=== PATIENT | female | born 1955 | race Caucasian/White ===

== ENCOUNTER 2019-07-28 11:24 | Observation (INO) | payer OTHER ==
[~2019-07-28] VITALS: Ht 160 cm; Wt 164.0 kg
--- NOTE | 2019-07-28 11:53 | NUR ---
LATE ENTRY FOR 1145 IN TO ASSESS PT, RADIOLOGY BEDSIDE.
--- NOTE | 2019-07-28 11:58 | NUR ---
64 Y/O FEMALE PRESENTS TO ED WITH C/O CP AND SOB. "IT'S BEEN REALLY BAD FOR THE LAST COUPLE OF WEEKS. WHEN I'M STATIONARY I CAN BREATHE FINE. WHEN I WALK I GET REALLY SOB AND IT'S BEEN FOR ABOUT A YEAR. I HAVE SOME CHEST PAIN FOR ABOUT TWO DAYS. I'VE HAD DIARRHEA FOR THE LAST WEEK." NADN. 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
[2019-07-28] MEDS ORDERED: SODIUM CHLORIDE FLUSH 10ML SYR IVF ONE (12:00)
[2019-07-28 12:01] LABS: BASOPHILS # (AUTO) 0.04 x10^3/uL (0-0.1); BASOPHILS % (AUTO) 1 % (0-1); EOSINOPHILS # (AUTO) 0.23 x10^3/uL (0-0.4); EOSINOPHILS % (AUTO) 4 % (1-7); LYMPHOCYTES # (AUTO) 1.35 x10^3/uL (1-3.4); LYMPHOCYTES % (AUTO) 24 % (22-44); MD NO; MEAN CORPUSCULAR HEMOGLOBIN 30.4 pg (27.0-34.8); MEAN CORPUSCULAR HGB CONC 33.4 g/dL (32.4-35.8); MEAN CORPUSCULAR VOLUME 91.1 fL (80-100); MEAN PLATELET VOLUME 8.4 fL (7.4-10.4); MONOCYTES % (AUTO) 7 % (2-9); NEUTROPHILS # (AUTO) 3.58 x10^3/uL (1.8-6.8); NEUTROPHILS % (AUTO) 64 % (42-75); PLATELET COUNT 315 x10^3/uL (130-400); RED BLOOD COUNT 4.92 x10^6/uL (3.82-5.3); RED CELL DISTRIBUTION WIDTH 13.2 % (9.6-15.2)
[2019-07-28 12:08] LABS: ALANINE AMINOTRANSFERASE 51 U/L (12-78); ALBUMIN 3.9 g/dL (3.4-5.0); ANION GAP 8 mmol/L (5-15); CALCIUM 8.5 mg/dL (8.5-10.1); CHLORIDE 107 mmol/L (98-107); CREATININE 0.91 mg/dL (0.55-1.02)
[2019-07-28 12:12] LABS: ALKALINE PHOSPHATASE 89 U/L (45-117); BILIRUBIN,TOTAL 0.7 mg/dL (0.2-1.0); TOTAL PROTEIN 7.4 g/dL (6.4-8.2); TROPONIN I < 0.015 ng/mL (0.000-0.045)
--- NOTE | 2019-07-28 12:51 | NUR ---
PT AMBULATORY WITH STEADY GAIT TO BATHROOM FOR UA. NADN.
--- NOTE | 2019-07-28 13:04 | NUR ---
UA SENT TO LAB.
[2019-07-28 13:14] LABS: MICROSCOPIC AUTO
--- NOTE | 2019-07-28 13:16 | NUR ---
PT CHOSES TO SIT ON GURNEY WITH FEET OFF OF GURNEY. PT EDUCATED REGARDING ALL RISKS. PT VERBALIZES UNDERSTANDING. FAMILY BEDSIDE. PT STILL PREFERS TO SIT ON THE EDGE OF BED. CALL LIGHT WITHIN REACH.
[2019-07-28 13:18] LABS: CULTURE INDICATED? YES
--- NOTE | 2019-07-28 14:13 | NUR ---
PT RESTING ON CYNDI. SAWYER. NO OTHER NEEDS REQUESTED AT THIS TIME. EDMD BEDSIDE.
[2019-07-28] MEDS ORDERED: CEFTRIAXONE PMX 1GM/50ML 50 ML IV ONE (14:30)
--- NOTE | 2019-07-28 14:38 | NUR ---
PT RESTING ON GURNEY. FAMILY BEDSIDE. PT VERBALIZES UNDERSTANDING REGARDING POC. PT STATES "I'M GLAD HE WANTS TO ADMIT ME." NADN, NO OTHER NEEDS REQUESTED AT THIS TIME.
--- NOTE | 2019-07-28 14:57 | NUR ---
PIV ESTABLISHED. PT TOLERATED WITH NO COMPLICATIONS. SON BEDSIDE. NADN. NO NEEDS REQUESTED AT THIS TIME.
[2019-07-28] MEDS ORDERED: AMLO10TA8 PO (15:03)
[2019-07-28] MEDS ORDERED: CHOL100015 PO (15:03)
[2019-07-28] MEDS ORDERED: FLUO20TA25 PO (15:03)
[2019-07-28] MEDS ORDERED: OMEP40CA42 PO (15:03)
[2019-07-28] MEDS ORDERED: ATOR10TA9 PO (15:03)
[2019-07-28] MEDS ORDERED: METF500T17 PO (15:03)
[2019-07-28] MEDS ORDERED: LISI-170 PO (15:03)
[2019-07-28] MEDS ORDERED: CINN500C2 PO (15:05)
[2019-07-28] MEDS ORDERED: MULT-709 PO (15:05)
[2019-07-28] MEDS ORDERED: ASPI-515 PO (15:05)
[2019-07-28] MEDS ORDERED: CEFTRIAXONE PMX 1GM/50ML 50 ML ONE ×2 (15:29→16:36)
--- NOTE | 2019-07-28 16:28 | NUR ---
PT RESTING ON GURTAMIE. SAWYER. HOSPITALIST JUST LEFT PT BEDSIDE. SON BEDSIDE. NO OTHER NEEDS REQUESTED AT THIS TIME.
[2019-07-28] MEDS: CEFTRIAXONE PMX 2GM/50ML 50 ML IV SCH (16:30)
[2019-07-28] MEDS: HEPARIN 5,000 UNITS/ML, 1ML SQ SCH (16:30)
[2019-07-28] MEDS ORDERED: ACETAMINOPHEN 325 MG TABLET PO PRN (16:30)
[2019-07-28] MEDS ORDERED: ONDANSETRON ODT 4 MG PO PRN (16:30)
[2019-07-28] MEDS ORDERED: ONDANSETRON 2MG/ML, 2ML IVPush PRN (16:30)
[2019-07-28 16:58] LABS: TROPONIN I < 0.015 ng/mL (0.000-0.045)
--- NOTE | 2019-07-28 16:59 | NUR ---
PT AMBULATORY WITH STEADY GAIT TO BATHROOM.
--- NOTE | 2019-07-28 17:43 | NUR ---
PT RESTING ON CYNDI. SAWYER. FAMILY BEDSIDE. NO NEEDS REQUESTED AT THIS TIME.
--- NOTE | 2019-07-28 18:28 | NUR ---
PT AMBULATORY WITH STEADY GAIT TO BATHROOM. NADN. PT BACK TO ROOM. SON BEDSIDE. NO REQUESTES AT THIS TIME.
--- NOTE | 2019-07-28 19:00 | NUR ---
BEDSIDE REPORT TO MARIVEL MARINO.
[2019-07-28] MEDS ORDERED: CARVEDILOL 3.125 MG TABLET ONE (19:05)
[2019-07-28] MEDS: CARVEDILOL 6.25 MG TABLET PO SCH (19:10)
--- NOTE | 2019-07-28 19:12 | NUR ---
PT REFUSED COREG BECAUSE SHE SAID SHE HAD A BAD REACTION TO METOPROLOL, BUT CANNOT REMEMBER WHAT THE BAD REACTION WAS. PT STATES SHE USUALLY TAKED LISINAPRIL FOR BP AT HOME.
--- NOTE | 2019-07-28 21:07 | NUR ---
PT HAS BEEN UNABLE TO PROVIDE STOOL SAMPLE FOR ANALYSIS
--- NOTE | 2019-07-28 21:30 | NUR ---
REPORT TO MARIVEL TOMAS
[2019-07-28 22:04] VITALS: BP 162/78
[2019-07-28 23:05] LABS: TROPONIN I < 0.015 ng/mL (0.000-0.045)
[2019-07-28] MEDS ORDERED: CHOL10002 PO (23:13)
[2019-07-28] MEDS: INSULIN LISPRO 100 UNITS/ML, PEN SQ-INSULIN SCH (23:16)
[2019-07-28] MEDS: LACTOBACILLUS CHEW TABLET PO SCH (23:16)
[2019-07-29] MEDS ORDERED: FLU VACC QS2019-20 36MOS UP/PF 0.5 ML IM-VACC ONE (00:30)
[2019-07-29 03:19] VITALS: BP 160/91
[2019-07-29 03:55] VITALS: BP 101/70
[2019-07-29 05:53] LABS: BASOPHILS # (AUTO) 0.05 x10^3/uL (0-0.1); BASOPHILS % (AUTO) 1 % (0-1); EOSINOPHILS # (AUTO) 0.23 x10^3/uL (0-0.4); EOSINOPHILS % (AUTO) 5 % (1-7); LYMPHOCYTES # (AUTO) 1.11 x10^3/uL (1-3.4); LYMPHOCYTES % (AUTO) 22 % (22-44); MD NO; MEAN CORPUSCULAR HEMOGLOBIN 30.2 pg (27.0-34.8); MEAN CORPUSCULAR HGB CONC 32.9 g/dL (32.4-35.8); MEAN CORPUSCULAR VOLUME 91.7 fL (80-100); MEAN PLATELET VOLUME 8.4 fL (7.4-10.4); MONOCYTES # (AUTO) 0.49 x10^3/uL (0.2-0.8); MONOCYTES % (AUTO) 10 % (2-9); NEUTROPHILS # (AUTO) 3.22 x10^3/uL (1.8-6.8); NEUTROPHILS % (AUTO) 63 % (42-75); PLATELET COUNT 255 x10^3/uL (130-400); RED BLOOD COUNT 4.34 x10^6/uL (3.82-5.3); RED CELL DISTRIBUTION WIDTH 13.4 % (9.6-15.2)
[2019-07-29 06:04] LABS: ANION GAP 7 mmol/L (5-15); CHLORIDE 109 mmol/L (98-107)
[2019-07-29 06:08] LABS: CHOL/HDL RATIO 3.1; CHOLESTEROL, TOTAL 195 mg/dL (140-239); CREATININE 0.82 mg/dL (0.55-1.02); HDL CHOL % 32 % (28-40); HDL CHOLESTEROL (DIRECT) 62 mg/dL (40-60); LDL CHOLESTEROL,CALCULATED 110 mg/dL (54-169); LDL/HDL RATIO 1.8 (0.5-3.0); TRIGLYCERIDES 117 mg/dL (50-200); VLDL CHOLESTEROL 23 mg/dL (0-25)
[2019-07-29] MEDS: HEPARIN 5,000 UNITS/ML, 1ML SQ SCH ×3 (06:41→21:23)
[2019-07-29] MEDS: CARVEDILOL 6.25 MG TABLET PO SCH ×2 (06:43→18:38)
[2019-07-29] MEDS: INSULIN LISPRO 100 UNITS/ML, PEN SQ-INSULIN SCH ×4 (07:00→21:00)
[2019-07-29 07:40] VITALS: BP 134/82
[2019-07-29] MEDS: metFORMIN 500 MG TABLET PO SCH (09:00)
[2019-07-29] MEDS ORDERED: ERGOCALCIFEROL 50,000 UNIT CAPSULE PO SCH (09:00)
[2019-07-29] MEDS ORDERED: CINNAMON BARK 1000 MG PO SCH (09:00)
[2019-07-29] MEDS ORDERED: REGADENOSON 0.4 MG/5 ML SYRINGE ONE (11:41)
[2019-07-29 14:35] VITALS: BP 138/86
[2019-07-29] MEDS: ASPIRIN 81 MG TABLET EC PO SCH (14:40)
[2019-07-29] MEDS: LACTOBACILLUS CHEW TABLET PO SCH ×3 (14:40→21:23)
[2019-07-29] MEDS: FLUOXETINE HCL 20 MG CAPSULE PO SCH (14:41)
[2019-07-29] MEDS: MULTIVITAMIN 1 TABLET PO SCH (14:41)
[2019-07-29] MEDS: LISINOPRIL 20 MG TABLET PO SCH (14:41)
[2019-07-29] MEDS: ATORVASTATIN 10 MG TABLET PO SCH (14:41)
[2019-07-29] MEDS: CEFTRIAXONE PMX 2GM/50ML 50 ML IV SCH (16:03)
[2019-07-29 18:35] VITALS: BP 144/76
[2019-07-29 20:00] VITALS: BP 147/79
[2019-07-29 21:06] LABS: CLOSTRIDIUM DIFFICILE ANTIGEN NEGATIVE; CLOSTRIDIUM DIFFICILE TOXIN NEGATIVE (Negative)
[2019-07-30 00:57] VITALS: BP 135/75
[2019-07-30 05:50] VITALS: BP 127/71
[2019-07-30] MEDS: HEPARIN 5,000 UNITS/ML, 1ML SQ SCH (05:57)
[2019-07-30] MEDS: CARVEDILOL 6.25 MG TABLET PO SCH (05:57)
[2019-07-30 06:10] LABS: BASOPHILS # (AUTO) 0.03 x10^3/uL (0-0.1); BASOPHILS % (AUTO) 1 % (0-1); EOSINOPHILS # (AUTO) 0.21 x10^3/uL (0-0.4); EOSINOPHILS % (AUTO) 5 % (1-7); LYMPHOCYTES # (AUTO) 1.05 x10^3/uL (1-3.4); LYMPHOCYTES % (AUTO) 26 % (22-44); MD NO; MEAN CORPUSCULAR HEMOGLOBIN 30.7 pg (27.0-34.8); MEAN CORPUSCULAR HGB CONC 33.3 g/dL (32.4-35.8); MEAN CORPUSCULAR VOLUME 92.1 fL (80-100); MEAN PLATELET VOLUME 8.4 fL (7.4-10.4); MONOCYTES % (AUTO) 10 % (2-9); NEUTROPHILS # (AUTO) 2.44 x10^3/uL (1.8-6.8); NEUTROPHILS % (AUTO) 59 % (42-75); PLATELET COUNT 241 x10^3/uL (130-400); RED BLOOD COUNT 4.28 x10^6/uL (3.82-5.3); RED CELL DISTRIBUTION WIDTH 13.4 % (9.6-15.2)
[2019-07-30 06:21] LABS: ANION GAP 6 mmol/L (5-15); CALCIUM 8.6 mg/dL (8.5-10.1); CHLORIDE 109 mmol/L (98-107)
[2019-07-30 06:22] LABS: CREATININE 0.74 mg/dL (0.55-1.02)
[2019-07-30] MEDS: INSULIN LISPRO 100 UNITS/ML, PEN SQ-INSULIN SCH ×2 (07:24→11:00)
[2019-07-30 07:43] VITALS: BP 122/75
[2019-07-30] MEDS: ATORVASTATIN 10 MG TABLET PO SCH (08:47)
[2019-07-30] MEDS: FLUOXETINE HCL 20 MG CAPSULE PO SCH (08:47)
[2019-07-30] MEDS: MULTIVITAMIN 1 TABLET PO SCH (08:47)
[2019-07-30] MEDS: ASPIRIN 81 MG TABLET EC PO SCH (08:47)
[2019-07-30] MEDS: LACTOBACILLUS CHEW TABLET PO SCH (08:47)
[2019-07-30] MEDS: LISINOPRIL 20 MG TABLET PO SCH (08:47)
[2019-07-30] MEDS: metFORMIN 500 MG TABLET PO SCH (08:47)
[2019-07-30] MEDS ORDERED: OMEPRAZOLE 20 MG CAPSULE.DR PO SCH (09:00)
[2019-07-30 12:35] VITALS: BP 138/85
[2019-07-30] MEDS ORDERED: CARV6.2512 PO (12:55)
[2019-07-30] MEDS ORDERED: CEFD300C37 PO (12:57)
== END 2019-07-30 15:40 | disposition home or self-care (01) ==
LOC: ED 13:18 → EDIP 15:57 → INTOOBSV 15:57 → 5SO 22:00 → DCLOUNGE 07-30 15:05
PROVIDERS: ADMIT Internal Medicine; ATTEND Hospitalist
DX: R07.89 Other chest pain (principal); N39.0 Urinary tract infection, site not specified; E11.9 Type 2 diabetes mellitus without complications; E66.01 Morbid (severe) obesity due to excess calories; I11.0 Hypertensive heart disease with heart failure; I50.9 Heart failure, unspecified; K21.9 Gastro-esophageal reflux disease without esophagitis; K80.20 Calculus of gallbladder without cholecystitis without obstruction; Z88.8 Allergy status to other drugs, medicaments and biological substances; Z91.010 Allergy to peanuts; Z68.44 Body mass index [BMI] 60.0-69.9, adult; Z79.82 Long term (current) use of aspirin; Z79.899 Other long term (current) drug therapy; Z79.4 Long term (current) use of insulin; Z23 Encounter for immunization
CPT/HCPCS: 36415; 71045; 76700; 78452; 80048; 80053; 80061; 81001; 82962; 83036; 83735; 83880; 84100; 84484; 85025; 85379; 87040; 87077; 87086; 87186; 87324; 90471; 90686; 93005; 93017; 93880; 96365; 96366; 96372; 97162; 99285; A9502; C8929; G0378; J0696; J1644; J2785; Q9957; 96374

== ENCOUNTER 2019-09-04 08:09 | Outpatient (CLI) | payer OTHER ==
[~2019-09-04 08:09] MED LIST: AMLO10TA8 PO; ASPI-515 PO; ATOR10TA9 PO; CARV6.2512 PO; CEFD300C37 PO; CHOL100015 PO; CHOL10002 PO; CINN500C2 PO; FLUO20TA25 PO; LISI-170 PO; METF500T17 PO; MULT-709 PO; OMEP40CA42 PO
[2019-09-04 09:50] LABS: MICROSCOPIC AUTO
[2019-09-04 09:51] LABS: CULTURE INDICATED? YES
[2019-09-04] MEDS ORDERED: CARV6.252 PO (12:55)
[2019-09-04] MEDS ORDERED: NITR100C57 PO (12:55)
[2019-09-04] MEDS ORDERED: LISI-170 PO (12:55)
[2019-09-04] MEDS ORDERED: CRAN1CAP2 PO (12:56)
== END 2019-09-04 23:59 | disposition home or self-care (01) ==
LOC: STAR 08:09
PROVIDERS: ATTEND Thoracic Surgery (Cardiothoracic Vascular Surgery)
DX: Z01.818 Encounter for other preprocedural examination (principal)
CPT/HCPCS: 81001; 87086

== ENCOUNTER 2019-09-05 05:46 | Observation (INO) | payer OTHER ==
[~2019-09-05] VITALS: Ht 160 cm; Wt 164.7 kg
[~2019-09-05 05:46] MED LIST changes: +CARV6.252 PO; +CRAN1CAP2 PO; +NITR100C57 PO
--- NOTE | 2019-09-05 05:52 | NUR ---
PT WHEELED TO ROOM AT THIS TIME, PT STS "ALSO I DON'T LIKE DRUGS."
--- NOTE | 2019-09-05 06:02 | NUR ---
PT REPORTS BILTERAL FLANK PAIN WITH PAIN WITH URINATION. PT REPROTS LEFT SIDED ABDOMINAL PAIN. PT REPROTS GALLBLADDER SURGERY SCHEDULED FOR SUNDAY, ALSO REPORTS SHE HAD CT WITH CONTRAST THAT CONFIRMED BILATERAL KIDNEY STONES. WHEN THIS RN ENTERED ROOM PT WAS BREATHING HEAVILY LEANED OVER BED AND MOANING. UPON ASKING QUESTIONS PT CALM AND IN NO ACUTE SIGNS OF DISTRESS, PT AGAIN STANDING AND MOANING. EKG PERFORMED. ERP IN ROOM TO EVAL PT. PT CONNECTED TO MONITORING, CALL LIGHT WITHIN REACH, ALL SAFETY MEASURES IN PLACE.
[2019-09-05] MEDS ORDERED: KETOROLAC 30 MG/1 ML ONE (06:15)
[2019-09-05] MEDS ORDERED: ONDANSETRON 2MG/ML, 2ML ONE (06:15)
[2019-09-05] MEDS ORDERED: HYDROmorphone 1 MG/ML, 1ML INJ ONE (06:15)
[2019-09-05 06:29] LABS: BASOPHILS # (AUTO) 0.03 x10^3/uL (0-0.1); BASOPHILS % (AUTO) 1 % (0-1); EOSINOPHILS # (AUTO) 0.36 x10^3/uL (0-0.4); EOSINOPHILS % (AUTO) 6 % (1-7); LYMPHOCYTES # (AUTO) 1.05 x10^3/uL (1-3.4); LYMPHOCYTES % (AUTO) 16 % (22-44); MD NO; MEAN CORPUSCULAR HEMOGLOBIN 30.2 pg (27.0-34.8); MEAN CORPUSCULAR HGB CONC 32.9 g/dL (32.4-35.8); MEAN CORPUSCULAR VOLUME 91.8 fL (80-100); MEAN PLATELET VOLUME 8.6 fL (7.4-10.4); MONOCYTES # (AUTO) 0.52 x10^3/uL (0.2-0.8); MONOCYTES % (AUTO) 8 % (2-9); NEUTROPHILS # (AUTO) 4.49 x10^3/uL (1.8-6.8); NEUTROPHILS % (AUTO) 70 % (42-75); PLATELET COUNT 286 x10^3/uL (130-400); RED BLOOD COUNT 4.91 x10^6/uL (3.82-5.3); RED CELL DISTRIBUTION WIDTH 13.8 % (9.6-15.2)
[2019-09-05] MEDS ORDERED: KETOROLAC 30 MG/1 ML IVPush ONE (06:30)
[2019-09-05] MEDS ORDERED: ONDANSETRON 2MG/ML, 2ML IVPush ONE (06:30)
[2019-09-05] MEDS ORDERED: HYDROmorphone 2 MG/ML, 1ML IVPush PRN (06:30)
[2019-09-05] MEDS ORDERED: SODIUM CHLORIDE FLUSH 10ML SYR IVF ONE (06:30)
[2019-09-05 06:39] LABS: ALANINE AMINOTRANSFERASE 34 U/L (12-78); ALBUMIN 3.9 g/dL (3.4-5.0); ANION GAP 7 mmol/L (5-15); CALCIUM 9.1 mg/dL (8.5-10.1); CHLORIDE 110 mmol/L (98-107); CREATININE 0.99 mg/dL (0.55-1.02)
[2019-09-05 06:41] LABS: ALKALINE PHOSPHATASE 79 U/L (45-117); BILIRUBIN,TOTAL 0.7 mg/dL (0.2-1.0); TOTAL PROTEIN 7.6 g/dL (6.4-8.2)
--- NOTE | 2019-09-05 06:47 | NUR ---
Report from Carol ORTA. Pt in CT currently.
--- NOTE | 2019-09-05 06:48 | NUR ---
REPORT GIVEN TO MARIVEL MOREIRA.
--- NOTE | 2019-09-05 07:48 | NUR ---
Pt resting in bed with eyes closed, easily awakens to this RN entering room. Pt states pain "way better" after medications. Pt provided blanket and lemon swab sticks per request, denies other needs. Pt states unable to provide urine sample at this time.
--- NOTE | 2019-09-05 08:56 | NUR ---
Dr. Connell in to speak with pt. Pt to be admitted to [facility].
[2019-09-05] MEDS ORDERED: OXYcodone IR 5MG TABLET ONE (08:58)
[2019-09-05] MEDS ORDERED: OXYcodone IR 5MG TABLET PO ONE (09:00)
--- NOTE | 2019-09-05 09:11 | NUR ---
Pt medicated per order. POC discussed. Pt denies other needs.
[2019-09-05] MEDS ORDERED: DOCUSATE 100 MG CAPSULE PO PRN (09:30)
[2019-09-05] MEDS ORDERED: DOCUSATE 100 MG CAPSULE ONE (10:08)
--- NOTE | 2019-09-05 10:12 | NUR ---
Pt provided pillow and assisted to position for comfort. POC discussed. Pt denies other needs.
--- NOTE | 2019-09-05 11:01 | NUR ---
Meal tray ordered for pt.
--- NOTE | 2019-09-05 11:06 | NUR ---
Report to Ozzy ORTA.
--- NOTE | 2019-09-05 11:09 | NUR ---
Report from Maria L ORTA Urology at [facility]- reports she would like her urine strained today (hopefully stone passess). However, will be NPO after midnight for intervention if neccessary With assessment patient reports pain improved to 5/10
[2019-09-05] MEDS ORDERED: PROMETHAZINE 25 MG/ML, 1ML IM PRN (11:30)
[2019-09-05] MEDS ORDERED: BISACODYL 10 MG SUPP PR PRN (11:30)
[2019-09-05] MEDS ORDERED: ENALAPRILAT 1.25 MG/ML, 2ML IVPush PRN (11:30)
[2019-09-05] MEDS ORDERED: DEXTROSE 4 GM TAB.CHEW PO PRN (12:00)
[2019-09-05] MEDS ORDERED: NITROFURANTOIN (MACROBID) 100 MG CAPSULE PO SCH (12:00)
[2019-09-05] MEDS ORDERED: DEXTROSE 50%, 50ML SYRINGE IVPush PRN (12:00)
[2019-09-05] MEDS ORDERED: GLUCAGON 1 MG IM PRN (12:00)
[2019-09-05] MEDS ORDERED: ENOXAPARIN 40 MG/0.4 ML ONE (12:39)
[2019-09-05] MEDS ORDERED: NITROFURANTOIN (MACROBID) 100 MG CAPSULE ONE (12:39)
[2019-09-05] MEDS ORDERED: CARVEDILOL 3.125 MG TABLET ONE (12:40)
--- NOTE | 2019-09-05 12:54 | NUR ---
COREG HELD PER PATIENT REQUEST. CLARIFIED WITH DR. ALEJO MEDICATED PER EMAR (MACROBID/LOVENOX/IVF) PROVIDED WITH LUNCH TRAY
[2019-09-05] MEDS: ENOXAPARIN 40 MG/0.4 ML SQ SCH (13:03)
[2019-09-05] MEDS: SODIUM CHLORIDE 0.9% 1,000 ML IV SCH (13:04)
[2019-09-05] MEDS: CARVEDILOL 6.25 MG TABLET PO SCH ×2 (13:04→21:07)
--- NOTE | 2019-09-05 13:12 | NUR ---
object screened from urine sample- sent to pathology (lab) for analysis. Stone vs.____
[2019-09-05 14:27] VITALS: BP 143/87
[2019-09-05] MEDS: INSULIN LISPRO 100 UNITS/ML, PEN SQ-INSULIN SCH ×2 (16:00→21:00)
[2019-09-05 17:00] LABS: MICROSCOPIC AUTO
[2019-09-05 17:11] LABS: CULTURE INDICATED? YES
[2019-09-05 18:26] VITALS: BP 150/85
[2019-09-05] MEDS: morphine SULFATE 10 MG/ML, 1ML IVPush PRN (19:52)
[2019-09-05] MEDS ORDERED: ONDANSETRON ODT 4 MG ONE (20:03)
[2019-09-05] MEDS: SODIUM CHLORIDE FLUSH 10ML SYR IVF SCH (21:06)
[2019-09-05] MEDS: ONDANSETRON 2MG/ML, 2ML IVPush PRN (21:08)
[2019-09-05] MEDS: FLUOXETINE HCL 20 MG CAPSULE PO SCH (21:48)
[2019-09-05] MEDS: LISINOPRIL 20 MG TABLET PO SCH (21:49)
[2019-09-06 00:38] VITALS: BP 127/76
[2019-09-06] MEDS: SODIUM CHLORIDE 0.9% 1,000 ML IV SCH (06:18)
[2019-09-06 06:38] LABS: CHLORIDE 107 mmol/L (98-107)
[2019-09-06 06:42] LABS: ALANINE AMINOTRANSFERASE 28 U/L (12-78); ALBUMIN 3.3 g/dL (3.4-5.0); ALKALINE PHOSPHATASE 68 U/L (45-117); ANION GAP 7 mmol/L (5-15); BILIRUBIN,TOTAL 0.9 mg/dL (0.2-1.0); CALCIUM 8.5 mg/dL (8.5-10.1); CREATININE 1.06 mg/dL (0.55-1.02); TOTAL PROTEIN 6.5 g/dL (6.4-8.2)
[2019-09-06] MEDS: INSULIN LISPRO 100 UNITS/ML, PEN SQ-INSULIN SCH ×4 (07:00→21:00)
[2019-09-06 07:03] LABS: BASOPHILS # (AUTO) 0.03 x10^3/uL (0-0.1); BASOPHILS % (AUTO) 1 % (0-1); EOSINOPHILS # (AUTO) 0.32 x10^3/uL (0-0.4); EOSINOPHILS % (AUTO) 7 % (1-7); LYMPHOCYTES # (AUTO) 0.98 x10^3/uL (1-3.4); LYMPHOCYTES % (AUTO) 22 % (22-44); MD NO; MEAN CORPUSCULAR HEMOGLOBIN 30.4 pg (27.0-34.8); MEAN CORPUSCULAR HGB CONC 33.1 g/dL (32.4-35.8); MEAN CORPUSCULAR VOLUME 91.8 fL (80-100); MEAN PLATELET VOLUME 8.4 fL (7.4-10.4); MONOCYTES # (AUTO) 0.48 x10^3/uL (0.2-0.8); MONOCYTES % (AUTO) 10 % (2-9); NEUTROPHILS # (AUTO) 2.74 x10^3/uL (1.8-6.8); NEUTROPHILS % (AUTO) 60 % (42-75); PLATELET COUNT 224 x10^3/uL (130-400); RED BLOOD COUNT 4.28 x10^6/uL (3.82-5.3); RED CELL DISTRIBUTION WIDTH 13.5 % (9.6-15.2)
[2019-09-06 07:23] VITALS: BP 114/71
[2019-09-06] MEDS ORDERED: ATORVASTATIN 10 MG TABLET PO SCH ×2 (09:00→21:00)
[2019-09-06] MEDS ORDERED: LISINOPRIL 40 MG TABLET PO SCH (09:00)
[2019-09-06] MEDS ORDERED: FLUOXETINE HCL 20 MG CAPSULE PO SCH (09:00)
[2019-09-06] MEDS: NITROFURANTOIN 50 MG CAPSULE PO SCH (10:34)
[2019-09-06] MEDS: SODIUM CHLORIDE FLUSH 10ML SYR IVF SCH ×2 (10:35→21:00)
[2019-09-06] MEDS: CARVEDILOL 6.25 MG TABLET PO SCH ×2 (10:35→21:35)
[2019-09-06] MEDS: ENOXAPARIN 40 MG/0.4 ML SQ SCH (10:49)
[2019-09-06 13:05] VITALS: BP 125/79
[2019-09-06] MEDS: morphine SULFATE 10 MG/ML, 1ML IVPush PRN (13:48)
[2019-09-06] MEDS: DOCUSATE 100 MG CAPSULE PO PRN ×2 (13:49→23:57)
[2019-09-06] MEDS: ACETAMINOPHEN 325 MG TABLET PO PRN ×2 (15:04→21:35)
[2019-09-06] MEDS: POLYETHYLENE GLYCOL 17 GM PACKET PO PRN (18:33)
[2019-09-06 19:10] VITALS: BP 131/74
[2019-09-06] MEDS: LISINOPRIL 20 MG TABLET PO SCH (21:35)
[2019-09-06] MEDS: FLUOXETINE HCL 20 MG CAPSULE PO SCH (21:35)
[2019-09-07 00:03] VITALS: BP 137/76
[2019-09-07 05:46] LABS: ANION GAP 4 mmol/L (5-15); BASOPHILS # (AUTO) 0.05 x10^3/uL (0-0.1); BASOPHILS % (AUTO) 1 % (0-1); CALCIUM 8.2 mg/dL (8.5-10.1); CHLORIDE 109 mmol/L (98-107); CREATININE 0.88 mg/dL (0.55-1.02); EOSINOPHILS # (AUTO) 0.29 x10^3/uL (0-0.4); EOSINOPHILS % (AUTO) 7 % (1-7); LYMPHOCYTES # (AUTO) 0.99 x10^3/uL (1-3.4); LYMPHOCYTES % (AUTO) 25 % (22-44); MD NO; MEAN CORPUSCULAR HEMOGLOBIN 30.5 pg (27.0-34.8); MEAN CORPUSCULAR HGB CONC 33.3 g/dL (32.4-35.8); MEAN CORPUSCULAR VOLUME 91.7 fL (80-100); MEAN PLATELET VOLUME 8.7 fL (7.4-10.4); MONOCYTES # (AUTO) 0.43 x10^3/uL (0.2-0.8); MONOCYTES % (AUTO) 11 % (2-9); NEUTROPHILS # (AUTO) 2.16 x10^3/uL (1.8-6.8); NEUTROPHILS % (AUTO) 55 % (42-75); PLATELET COUNT 207 x10^3/uL (130-400); RED BLOOD COUNT 4.11 x10^6/uL (3.82-5.3); RED CELL DISTRIBUTION WIDTH 13.5 % (9.6-15.2)
[2019-09-07] MEDS: INSULIN LISPRO 100 UNITS/ML, PEN SQ-INSULIN SCH ×3 (07:00→16:00)
[2019-09-07 08:13] VITALS: BP 151/81
[2019-09-07] MEDS: ACETAMINOPHEN 325 MG TABLET PO PRN ×2 (09:05→17:03)
[2019-09-07] MEDS: ONDANSETRON 2MG/ML, 2ML IVPush PRN (09:05)
[2019-09-07] MEDS: NITROFURANTOIN 50 MG CAPSULE PO SCH (09:36)
[2019-09-07] MEDS: SODIUM CHLORIDE FLUSH 10ML SYR IVF SCH (09:36)
[2019-09-07] MEDS: CARVEDILOL 6.25 MG TABLET PO SCH (09:36)
[2019-09-07] MEDS: POLYETHYLENE GLYCOL 17 GM PACKET PO PRN (09:39)
[2019-09-07] MEDS: ENOXAPARIN 40 MG/0.4 ML SQ SCH (10:54)
[2019-09-07] MEDS ORDERED: MAGNESIUM HYDROXIDE 8%, 30ML UDC PO PRN (12:00)
[2019-09-07 14:38] VITALS: BP 130/82
== END 2019-09-07 17:51 | disposition home or self-care (01) ==
LOC: ED 06:02 → INTOOBSV 09:13 → EDIP 09:13 → 3N 14:01
PROVIDERS: ADMIT Internal Medicine; ATTEND Internal Medicine
DX: K80.20 Calculus of gallbladder without cholecystitis without obstruction (principal); N13.6 Pyonephrosis; B96.20 Unspecified Escherichia coli [E. coli] as the cause of diseases classified elsewhere; E11.9 Type 2 diabetes mellitus without complications; K59.00 Constipation, unspecified; E78.5 Hyperlipidemia, unspecified; I10 Essential (primary) hypertension; N20.0 Calculus of kidney; Z96.651 Presence of right artificial knee joint; Z79.2 Long term (current) use of antibiotics; Z98.84 Bariatric surgery status; Z88.8 Allergy status to other drugs, medicaments and biological substances; Z79.82 Long term (current) use of aspirin; Z79.4 Long term (current) use of insulin; Z79.899 Other long term (current) drug therapy; E66.9 Obesity, unspecified
CPT/HCPCS: 36415; 74018; 74176; 80048; 80053; 81001; 82360; 82962; 83690; 85025; 87086; 88300; 93005; 96372; 96374; 96375; 96376; 99285; G0378; J1170; J1650; J1885; J2270; J2405; J2550; J7030

== ENCOUNTER 2019-09-10 11:34 | Day surgery (SDC) | payer OTHER ==
[~2019-09-10] VITALS: Ht 160 cm; Wt 156.9 kg
[~2019-09-10 11:34] MED LIST changes: +BUPIVACAINE/PF 0.5% ONE; +EPINEPHRINE 1 MG/ML, 1ML ONE
[2019-09-10] MEDS ORDERED: LACTATED RINGERS 1,000 ML IV SCH ×2 (12:07→14:28)
[2019-09-10 12:15] VITALS: BP 154/87
[2019-09-10] MEDS ORDERED: LIDOCAINE-MPF 1%, 2ML ONE (12:20)
[2019-09-10] MEDS ORDERED: LIDOCAINE-MPF 1%, 2ML INFIL ONE (12:30)
[2019-09-10] MEDS ORDERED: MIDAZOLAM 1 MG/ML, 2ML ONE (12:54)
[2019-09-10] MEDS ORDERED: FENTANYL PF 250 MCG/5ML ONE (12:55)
[2019-09-10] MEDS ORDERED: INDOCYANINE GREEN 25 MG VIAL IV ONE (13:00)
[2019-09-10] MEDS ORDERED: ONDANSETRON 2MG/ML, 2ML IVPush ONE (13:00)
[2019-09-10] MEDS ORDERED: APREPITANT 40 MG CAPSULE ONE ×2 (13:22)
[2019-09-10] MEDS ORDERED: KETAMINE 10 MG/ML, 20ML ONE (13:30)
[2019-09-10] MEDS ORDERED: CEFOTETAN PMX 2GM/50ML 50 ML IVPB ONE (13:30)
[2019-09-10] MEDS ORDERED: hydrALAzine 20 MG/ML, 1ML ONE (13:30)
[2019-09-10] MEDS ORDERED: OXYcodone 5 MG/5 ML ORAL.SOL UDC PO PRN (14:00)
[2019-09-10] MEDS ORDERED: PROMETHAZINE 25 MG/ML, 1ML IV PRN (14:00)
[2019-09-10] MEDS ORDERED: FENTANYL PF 100 MCG/2ML IV PRN (14:00)
[2019-09-10] MEDS ORDERED: hydrALAzine 20 MG/ML, 1ML IV PRN (14:00)
[2019-09-10] MEDS ORDERED: ACETAMINOPHEN 325 MG TABLET PO PRN (14:00)
[2019-09-10] MEDS ORDERED: MEPERIDINE/PF 25MG/ML,1ML IVPush PRN (14:00)
[2019-09-10] MEDS ORDERED: ALBUTEROL SULFATE 2.5 MG/3 ML NPPB PRN (14:00)
[2019-09-10] MEDS ORDERED: HYDROmorphone 2 MG/ML, 1ML IVPush PRN (14:00)
[2019-09-10] MEDS ORDERED: DEXAMETHASONE 4 MG/ML, 1ML ONE (14:10)
[2019-09-10] MEDS ORDERED: PROPOFOL 10 MG/ML, 20ML ONE (14:10)
[2019-09-10] MEDS ORDERED: ROCURONIUM 10MG/ML,5ML ONE (14:10)
[2019-09-10] MEDS ORDERED: SUGAMMADEX 200 MG/2 ML IVPush ONE (14:10)
[2019-09-10] MEDS ORDERED: LIDOCAINE-MPF 2% ,5ML ONE (14:10)
[2019-09-10] MEDS ORDERED: HYDROcodone/APAP 5/325 TABLET PO PRN (14:30)
[2019-09-10] MEDS ORDERED: morphine SULFATE 10 MG/ML, 1ML IVPush PRN (14:30)
[2019-09-10] MEDS ORDERED: ONDANSETRON 2MG/ML, 2ML IVPush PRN (14:30)
[2019-09-10] MEDS ORDERED: OXYcodone 5 MG/5 ML ORAL.SOL UDC ONE (14:46)
[2019-09-10] MEDS ORDERED: MEPERIDINE/PF 25MG/ML,1ML ONE (14:46)
[2019-09-10] MEDS ORDERED: ACETAMINOPHEN 650 MG/20.3 ML UDC ONE ×2 (14:46→14:58)
== END 2019-09-10 18:45 | disposition home or self-care (01) ==
LOC: OUT 11:34
PROVIDERS: ATTEND Thoracic Surgery (Cardiothoracic Vascular Surgery)
DX: K80.10 Calculus of gallbladder with chronic cholecystitis without obstruction (principal); K82.8 Other specified diseases of gallbladder; E11.9 Type 2 diabetes mellitus without complications; E66.01 Morbid (severe) obesity due to excess calories; Z68.44 Body mass index [BMI] 60.0-69.9, adult; Z79.82 Long term (current) use of aspirin; Z79.84 Long term (current) use of oral hypoglycemic drugs; Z79.899 Other long term (current) drug therapy; Z88.8 Allergy status to other drugs, medicaments and biological substances; Z91.040 Latex allergy status; Z91.018 Allergy to other foods; Z98.890 Other specified postprocedural states; Z82.61 Family history of arthritis; Z80.3 Family history of malignant neoplasm of breast; Z83.3 Family history of diabetes mellitus; Z82.49 Family history of ischemic heart disease and other diseases of the circulatory system
CPT/HCPCS: 47562; 82962; 88304; J0171; J0360; J1100; J2175; J2250; J2405; J2704; J3010; J3490; J7120; J8501

== ENCOUNTER 2019-09-16 05:52 | Inpatient (IN) | payer OTHER ==
[~2019-09-16] VITALS: Ht 160 cm; Wt 160.5 kg
[~2019-09-16 05:52] MED LIST changes: -BUPIVACAINE/PF 0.5% ONE; -EPINEPHRINE 1 MG/ML, 1ML ONE
--- NOTE | 2019-09-16 06:46 | NUR ---
RN to bedside, patient in room with two emesis bags. Patient reports having a recent cholecystectomy and has had some difficulty swalling since laporascopic cystectomy. Patient reports having multiple discussions with multiple providers and reported her surgeon suggested she go into the ER due to his concern for having her airway compromised. Patient placed on pulsatile oxygen sensor and oxygen greater than 93 percent. Patient suggesting different treatments she expects, but RN asked patient to save discussion for provider. Patient agreeable. Provided with sterile container should she cough something else up and desires saving it. Aslo provided with suction at bedside to alleviate patients concern over emesis. Patient now agreeable and resting comfortably. Awaiting assessment by provider.
[2019-09-16] MEDS ORDERED: SODIUM CHLORIDE FLUSH 10ML SYR IVF ONE ×2 (07:00→10:30)
--- NOTE | 2019-09-16 07:00 | NUR ---
SBAR RPT REC'D FROM MARIVEL BILLS AND PT CARE ASSUMED.
--- NOTE | 2019-09-16 08:07 | NUR ---
PT OOB AND AMBULATED TO BATHROOM W/O DIFFICULTY. RTD TO ROOM. PIV EST AND LABS DRAWN. PT DENIES PAIN AND STATES THAT SHE FEELS THAT THE "ABCESS HAS POPPED AND IS NOW DRAINING INTO MY STOMACH" PT C/O NAUSEA AND REQUESTS ZOFRAN. DR SEVILLA INFORMED, NEW ORDER PENDING.
[2019-09-16 08:12] LABS: BASOPHILS # (AUTO) 0.05 x10^3/uL (0-0.1); BASOPHILS % (AUTO) 1 % (0-1); EOSINOPHILS % (AUTO) 12 % (1-7); LYMPHOCYTES # (AUTO) 0.92 x10^3/uL (1-3.4); LYMPHOCYTES % (AUTO) 9 % (22-44); MD NO; MEAN CORPUSCULAR HEMOGLOBIN 30.2 pg (27.0-34.8); MEAN CORPUSCULAR HGB CONC 33.2 g/dL (32.4-35.8); MEAN CORPUSCULAR VOLUME 91.1 fL (80-100); MEAN PLATELET VOLUME 8.8 fL (7.4-10.4); MONOCYTES % (AUTO) 7 % (2-9); NEUTROPHILS % (AUTO) 72 % (42-75); PLATELET COUNT 253 x10^3/uL (130-400); RED BLOOD COUNT 4.75 x10^6/uL (3.82-5.3); RED CELL DISTRIBUTION WIDTH 13.7 % (9.6-15.2)
[2019-09-16 08:23] LABS: ALBUMIN 3.5 g/dL (3.4-5.0); ANION GAP 8 mmol/L (5-15); CALCIUM 8.7 mg/dL (8.5-10.1); CHLORIDE 106 mmol/L (98-107); CREATININE 0.79 mg/dL (0.55-1.02)
[2019-09-16] MEDS ORDERED: ONDANSETRON 2MG/ML, 2ML ONE ×2 (08:33→12:52)
--- NOTE | 2019-09-16 08:40 | NUR ---
PT MED NOTED FOR NAUSEA. PT TO CT WITH TECH TRANSPORT
[2019-09-16] MEDS ORDERED: ONDANSETRON 2MG/ML, 2ML IVPush ONE ×2 (09:00→13:00)
[2019-09-16] MEDS ORDERED: OMNIPAQUE 350 MG/ML, 150 ML BOTTLE ONE (09:07)
--- NOTE | 2019-09-16 09:29 | NUR ---
TESTS RESULTED, CHART UP FOR RECHECK
--- NOTE | 2019-09-16 09:58 | NUR ---
Boo MURGUIA paged @[phone] returned @[phone]
[2019-09-16] MEDS ORDERED: CLINDAMYCIN PMX 600MG/50ML 50 ML ONE (10:50)
[2019-09-16] MEDS: CLINDAMYCIN PMX 600MG/50ML 50 ML IV SCH ×2 (10:55→19:44)
--- NOTE | 2019-09-16 11:30 | NUR ---
US TECH AT BEDSIDE, STUDY IN PROGRESS
[2019-09-16] MEDS ORDERED: ENALAPRILAT 1.25 MG/ML, 2ML IV PRN (12:00)
[2019-09-16] MEDS ORDERED: ONDANSETRON 2MG/ML, 2ML IVPush PRN (12:00)
[2019-09-16] MEDS ORDERED: morphine SULFATE 10 MG/ML, 1ML IVPush PRN ×2 (12:00→12:30)
[2019-09-16] MEDS ORDERED: OXYcodone/APAP 5/325MG TABLET PO PRN (12:00)
[2019-09-16] MEDS ORDERED: ONDANSETRON 4 MG TABLET PO PRN (12:00)
[2019-09-16] MEDS ORDERED: ACETAMINOPHEN 650 MG/20.3 ML UDC PO PRN (12:00)
[2019-09-16] MEDS: NS + 20MEQ KCL 1,000 ML IV SCH (12:25)
[2019-09-16] MEDS ORDERED: LISINOPRIL 20 MG TABLET PO SCH (12:30)
[2019-09-16] MEDS: CARVEDILOL 6.25 MG TABLET PO SCH ×2 (12:30→21:49)
[2019-09-16] MEDS ORDERED: DEXTROSE 50%, 50ML SYRINGE IVPush PRN (12:30)
[2019-09-16] MEDS ORDERED: DEXTROSE 4 GM TAB.CHEW PO PRN (12:30)
[2019-09-16] MEDS: NITROFURANTOIN (MACROBID) 100 MG CAPSULE PO SCH (12:30)
[2019-09-16] MEDS ORDERED: OMEPRAZOLE 20 MG CAPSULE.DR PO PRN (12:30)
[2019-09-16] MEDS ORDERED: GLUCAGON 1 MG IM PRN (12:30)
[2019-09-16] MEDS ORDERED: ONDANSETRON ODT 4 MG PO PRN (12:30)
[2019-09-16] MEDS ORDERED: KETOROLAC 30 MG/1 ML IV PRN (12:30)
[2019-09-16] MEDS ORDERED: IBUPROFEN 600 MG TABLET PO PRN (12:30)
[2019-09-16] MEDS ORDERED: hydrALAzine 20 MG/ML, 1ML IVPush PRN (12:30)
[2019-09-16] MEDS ORDERED: ACETAMINOPHEN 325 MG TABLET PO PRN (12:30)
[2019-09-16] MEDS: ONDANSETRON 2MG/ML, 2ML IVPush PRN (12:54)
--- NOTE | 2019-09-16 12:56 | NUR ---
DR LEO AT BEDSIDE. PT C/O NAUSEA, PT MED NOTED.
[2019-09-16] MEDS ORDERED: CARVEDILOL 3.125 MG TABLET ONE (13:45)
[2019-09-16] MEDS ORDERED: LISINOPRIL 20 MG TABLET ONE (13:45)
[2019-09-16] MEDS ORDERED: ONDANSETRON ODT 4 MG ONE (13:45)
[2019-09-16] MEDS ORDERED: NS + 20MEQ KCL 1,000 ML IV ONE (13:45)
[2019-09-16] MEDS ORDERED: HYDROcodone/APAP 5/325 TABLET ONE (14:39)
[2019-09-16] MEDS: HYDROcodone/APAP 5/325 TABLET PO PRN ×2 (14:46→21:58)
[2019-09-16] MEDS: INSULIN LISPRO 100 UNITS/ML, PEN SQ-INSULIN SCH ×2 (16:00→21:00)
[2019-09-16] MEDS ORDERED: ATORVASTATIN 40 MG TABLET PO SCH (21:00)
[2019-09-16] MEDS: SODIUM CHLORIDE FLUSH 10ML SYR IVF SCH (21:00)
[2019-09-16] MEDS ORDERED: LACTULOSE 10 GM/15 ML UDC PO SCH (21:00)
[2019-09-16 21:30] VITALS: BP 152/79
[2019-09-16] MEDS: ASCORBIC ACID 500 MG TABLET PO SCH (21:49)
[2019-09-17 02:00] VITALS: BP 136/72
[2019-09-17] MEDS: ONDANSETRON 2MG/ML, 2ML IVPush PRN (02:02)
[2019-09-17] MEDS: HYDROcodone/APAP 5/325 TABLET PO PRN ×3 (02:03→21:15)
[2019-09-17] MEDS: CLINDAMYCIN PMX 600MG/50ML 50 ML IV SCH ×3 (03:25→19:23)
[2019-09-17] MEDS: NS + 20MEQ KCL 1,000 ML IV SCH ×2 (05:26→12:25)
[2019-09-17 05:53] LABS: BASOPHILS # (AUTO) 0.06 x10^3/uL (0-0.1); BASOPHILS % (AUTO) 1 % (0-1); EOSINOPHILS # (AUTO) 1.03 x10^3/uL (0-0.4); EOSINOPHILS % (AUTO) 14 % (1-7); LYMPHOCYTES # (AUTO) 1.35 x10^3/uL (1-3.4); LYMPHOCYTES % (AUTO) 19 % (22-44); MD NO; MEAN CORPUSCULAR HEMOGLOBIN 30.5 pg (27.0-34.8); MEAN CORPUSCULAR HGB CONC 33.2 g/dL (32.4-35.8); MEAN CORPUSCULAR VOLUME 91.7 fL (80-100); MEAN PLATELET VOLUME 8.5 fL (7.4-10.4); MONOCYTES # (AUTO) 0.69 x10^3/uL (0.2-0.8); MONOCYTES % (AUTO) 10 % (2-9); NEUTROPHILS # (AUTO) 4.06 x10^3/uL (1.8-6.8); NEUTROPHILS % (AUTO) 57 % (42-75); PLATELET COUNT 228 x10^3/uL (130-400); RED BLOOD COUNT 4.27 x10^6/uL (3.82-5.3); RED CELL DISTRIBUTION WIDTH 13.8 % (9.6-15.2)
[2019-09-17 06:03] LABS: ANION GAP 4 mmol/L (5-15); CALCIUM 8.8 mg/dL (8.5-10.1); CHLORIDE 109 mmol/L (98-107)
[2019-09-17 06:04] LABS: CREATININE 1.07 mg/dL (0.55-1.02)
[2019-09-17] MEDS: INSULIN LISPRO 100 UNITS/ML, PEN SQ-INSULIN SCH ×4 (07:00→21:00)
[2019-09-17 07:42] VITALS: BP 125/77
[2019-09-17] MEDS: FLUOXETINE HCL 20 MG CAPSULE PO SCH (08:58)
[2019-09-17] MEDS: ASPIRIN 81 MG TABLET EC PO SCH (08:58)
[2019-09-17] MEDS: ASCORBIC ACID 500 MG TABLET PO SCH ×2 (08:58→21:15)
[2019-09-17] MEDS: AMLODIPINE 10 MG TAB PO SCH (08:58)
[2019-09-17] MEDS: ATORVASTATIN 10 MG TABLET PO SCH (08:58)
[2019-09-17] MEDS: CARVEDILOL 6.25 MG TABLET PO SCH ×2 (08:59→21:15)
[2019-09-17] MEDS: NITROFURANTOIN (MACROBID) 100 MG CAPSULE PO SCH (08:59)
[2019-09-17] MEDS ORDERED: TEMPLATE NON-FORMULARY MED. (Cranberry Conc/Ascorbic Acid** (Cranberry 12,600 Mg Softgel PO SCH (09:00)
[2019-09-17] MEDS ORDERED: ASPIRIN 81 MG TABLET CHEW PO/NG SCH (09:00)
[2019-09-17] MEDS: SODIUM CHLORIDE FLUSH 10ML SYR IVF SCH ×2 (09:04→21:00)
[2019-09-17 14:52] VITALS: BP 136/85
[2019-09-17 19:09] VITALS: BP 136/82
[2019-09-18 02:05] VITALS: BP 126/77
[2019-09-18] MEDS: NS + 20MEQ KCL 1,000 ML IV SCH ×2 (02:07→14:30)
[2019-09-18] MEDS: CLINDAMYCIN PMX 600MG/50ML 50 ML IV SCH ×2 (03:29→10:56)
[2019-09-18] MEDS: ONDANSETRON 2MG/ML, 2ML IVPush PRN ×2 (05:18→13:27)
[2019-09-18 05:56] LABS: BASOPHILS # (AUTO) 0.02 x10^3/uL (0-0.1); BASOPHILS % (AUTO) 0 % (0-1); EOSINOPHILS # (AUTO) 0.82 x10^3/uL (0-0.4); EOSINOPHILS % (AUTO) 14 % (1-7); LYMPHOCYTES # (AUTO) 1.13 x10^3/uL (1-3.4); LYMPHOCYTES % (AUTO) 19 % (22-44); MD NO; MEAN CORPUSCULAR HEMOGLOBIN 30.1 pg (27.0-34.8); MEAN CORPUSCULAR HGB CONC 32.7 g/dL (32.4-35.8); MEAN CORPUSCULAR VOLUME 91.9 fL (80-100); MEAN PLATELET VOLUME 8.9 fL (7.4-10.4); MONOCYTES # (AUTO) 0.54 x10^3/uL (0.2-0.8); MONOCYTES % (AUTO) 9 % (2-9); NEUTROPHILS # (AUTO) 3.33 x10^3/uL (1.8-6.8); NEUTROPHILS % (AUTO) 57 % (42-75); PLATELET COUNT 214 x10^3/uL (130-400); RED BLOOD COUNT 4.09 x10^6/uL (3.82-5.3); RED CELL DISTRIBUTION WIDTH 13.9 % (9.6-15.2)
[2019-09-18 06:00] LABS: ANION GAP 6 mmol/L (5-15); CALCIUM 8.2 mg/dL (8.5-10.1); CHLORIDE 109 mmol/L (98-107)
[2019-09-18 06:04] LABS: ALANINE AMINOTRANSFERASE 22 U/L (12-78); ALKALINE PHOSPHATASE 68 U/L (45-117); BILIRUBIN,TOTAL 0.4 mg/dL (0.2-1.0); CREATININE 1.04 mg/dL (0.55-1.02); TOTAL PROTEIN 6.1 g/dL (6.4-8.2)
[2019-09-18] MEDS: INSULIN LISPRO 100 UNITS/ML, PEN SQ-INSULIN SCH ×3 (07:00→16:00)
[2019-09-18 07:24] VITALS: BP 114/76
[2019-09-18] MEDS: NITROFURANTOIN (MACROBID) 100 MG CAPSULE PO SCH (08:26)
[2019-09-18] MEDS: ASCORBIC ACID 500 MG TABLET PO SCH (08:26)
[2019-09-18] MEDS: SODIUM CHLORIDE FLUSH 10ML SYR IVF SCH (08:26)
[2019-09-18] MEDS: CARVEDILOL 6.25 MG TABLET PO SCH (08:26)
[2019-09-18] MEDS: ATORVASTATIN 10 MG TABLET PO SCH (08:27)
[2019-09-18] MEDS: FLUOXETINE HCL 20 MG CAPSULE PO SCH (08:27)
[2019-09-18] MEDS: AMLODIPINE 10 MG TAB PO SCH (08:27)
[2019-09-18] MEDS: ASPIRIN 81 MG TABLET EC PO SCH (08:28)
[2019-09-18] MEDS ORDERED: CLIN300C8 PO (12:40)
[2019-09-18] MEDS ORDERED: AMLO10TA8 PO (12:40)
== END 2019-09-18 18:41 | disposition home or self-care (01) | DRG 602 ==
LOC: ED 09:04 → EDIP 09:52 → 3N 15:20
PROVIDERS: ADMIT Hospitalist; ATTEND Internal Medicine
DX: L02.11 Cutaneous abscess of neck (principal); N17.0 Acute kidney failure with tubular necrosis; N39.0 Urinary tract infection, site not specified; Z68.44 Body mass index [BMI] 60.0-69.9, adult; I10 Essential (primary) hypertension; E66.01 Morbid (severe) obesity due to excess calories; E04.1 Nontoxic single thyroid nodule; E11.9 Type 2 diabetes mellitus without complications; Z87.440 Personal history of urinary (tract) infections; Z87.442 Personal history of urinary calculi; Z90.49 Acquired absence of other specified parts of digestive tract
CPT/HCPCS: 36415; 70491; 76536; 80048; 80053; 82040; 82962; 83605; 84443; 85025; 87040; 87070; 87205; 96374; G0378; J2405; J3480; Q0162; Q9967

== ENCOUNTER 2019-10-02 12:49 | Outpatient (CLI) | payer OTHER ==
[~2019-10-02 12:49] MED LIST changes: +CLIN300C8 PO
[2019-10-02] MEDS ORDERED: LIDOCAINE-MPF 1%, 5ML ONE (13:03)
== END 2019-10-02 23:59 | disposition home or self-care (01) ==
LOC: RAD 12:49
PROVIDERS: ATTEND Family Medicine
DX: E04.1 Nontoxic single thyroid nodule (principal); E66.01 Morbid (severe) obesity due to excess calories; Z88.8 Allergy status to other drugs, medicaments and biological substances; Z91.040 Latex allergy status; Z90.49 Acquired absence of other specified parts of digestive tract
CPT/HCPCS: 10005; 88173

== ENCOUNTER 2019-11-27 23:15 | Inpatient (IN) | payer OTHER ==
[~2019-11-27] VITALS: Ht 160 cm; Wt 161.6 kg
[2019-11-28] MEDS ORDERED: PROMETHAZINE 25 MG/ML, 1ML IM ONE
[2019-11-28] MEDS ORDERED: MORPHINE SULFATE 4 MG/ML, 1ML IVPush ONE
[2019-11-28] MEDS ORDERED: KETOROLAC 30 MG/1 ML IVPush ONE
--- NOTE | 2019-11-28 00:11 | NUR ---
CT DELAY, NEED IV/PAIN MED.
[2019-11-28 00:25] LABS: BASOPHILS # (AUTO) 0.05 x10^3/uL (0-0.1); BASOPHILS % (AUTO) 0 % (0-1); EOSINOPHILS # (AUTO) 0.28 x10^3/uL (0-0.4); EOSINOPHILS % (AUTO) 2 % (1-7); LYMPHOCYTES # (AUTO) 0.64 x10^3/uL (1-3.4); LYMPHOCYTES % (AUTO) 5 % (22-44); MD NO; MEAN CORPUSCULAR HGB CONC 33.2 g/dL (32.4-35.8); MEAN CORPUSCULAR VOLUME 90.3 fL (80-100); MEAN PLATELET VOLUME 8.4 fL (7.4-10.4); MONOCYTES # (AUTO) 0.78 x10^3/uL (0.2-0.8); MONOCYTES % (AUTO) 6 % (2-9); NEUTROPHILS # (AUTO) 10.81 x10^3/uL (1.8-6.8); NEUTROPHILS % (AUTO) 86 % (42-75); PLATELET COUNT 227 x10^3/uL (130-400); RED BLOOD COUNT 4.68 x10^6/uL (3.82-5.3); RED CELL DISTRIBUTION WIDTH 14.1 % (9.6-15.2)
[2019-11-28 00:29] LABS: ALANINE AMINOTRANSFERASE 23 U/L (12-78); ALBUMIN 3.5 g/dL (3.4-5.0); ANION GAP 7 mmol/L (5-15); CALCIUM 9.3 mg/dL (8.5-10.1); CHLORIDE 104 mmol/L (98-107); CREATININE 1.31 mg/dL (0.55-1.02)
[2019-11-28 00:32] LABS: ALKALINE PHOSPHATASE 82 U/L (45-117); BILIRUBIN,TOTAL 0.7 mg/dL (0.2-1.0); TOTAL PROTEIN 7.3 g/dL (6.4-8.2)
[2019-11-28] MEDS ORDERED: SODIUM CHLORIDE 0.9% 1,000ML IVBOLUS ONE (01:00)
--- NOTE | 2019-11-28 01:01 | NUR ---
PT BACK FROM IMAGING AT THIS TIME. PT UPDATED ON POC, MONITORING IN PLACE. CALL LIGHT WITHIN REACH.
--- NOTE | 2019-11-28 01:20 | NUR ---
Break rn:Md at bedside for recheck.
--- NOTE | 2019-11-28 01:24 | NUR ---
Awaiting nephro consult.
[2019-11-28 02:00] LABS: MICROSCOPIC AUTO
[2019-11-28 02:01] LABS: CULTURE INDICATED? YES
[2019-11-28] MEDS ORDERED: CEFTRIAXONE PMX 1GM/50ML 50 ML IV ONE (02:30)
[2019-11-28] MEDS ORDERED: LABETALOL 5MG/ML, 20ML IVPush PRN (04:00)
[2019-11-28] MEDS ORDERED: OXYcodone/APAP 5/325MG TABLET PO PRN (04:00)
[2019-11-28] MEDS ORDERED: TRAZODONE 50MG TABLET PO PRN (04:00)
[2019-11-28] MEDS ORDERED: OMEPRAZOLE 20 MG CAPSULE.DR PO PRN (04:00)
[2019-11-28] MEDS ORDERED: morphine SULFATE 10 MG/ML, 1ML IVPush PRN (04:00)
[2019-11-28 04:02] VITALS: BP 158/82
[2019-11-28] MEDS: ONDANSETRON 2MG/ML, 2ML IVPush PRN (04:11)
[2019-11-28] MEDS: SODIUM CHLORIDE 0.9% 1,000 ML IV SCH ×2 (04:11→22:00)
[2019-11-28] MEDS: PROMETHAZINE 25 MG/ML, 1ML IM PRN ×2 (05:14→18:36)
[2019-11-28 07:20] VITALS: BP 90/57
[2019-11-28 07:45] LABS: MEAN CORPUSCULAR HEMOGLOBIN 30.1 pg (27.0-34.8); MEAN CORPUSCULAR HGB CONC 32.6 g/dL (32.4-35.8); MEAN CORPUSCULAR VOLUME 92.3 fL (80-100); MEAN PLATELET VOLUME 8.4 fL (7.4-10.4); PLATELET COUNT 212 x10^3/uL (130-400); RED BLOOD COUNT 4.53 x10^6/uL (3.82-5.3); RED CELL DISTRIBUTION WIDTH 14.1 % (9.6-15.2)
[2019-11-28 07:55] LABS: ANION GAP 7 mmol/L (5-15); CALCIUM 8.6 mg/dL (8.5-10.1); CHLORIDE 108 mmol/L (98-107); CREATININE 1.45 mg/dL (0.55-1.02)
[2019-11-28 08:07] LABS: MD YES
[2019-11-28 08:09] LABS: <PLATELET ESTIMATE> ADEQUATE; <PLT MORPHOLOGY> NORMAL PLT MORPH; <RBC MORPHOLOGY> NORMAL; BAND#(MANUAL) 1.72 x10^3/uL; BANDS%(MANUAL) 13 % (0-7); LYMPHS% (MANUAL) 3 % (22-44); METAMYELOCYTES# (MANUAL) 0.13 x10^3/uL (0-0); METAMYELOCYTES% (MANUAL) 1 % (0-1); MONOS% (MANUAL) 3 % (2-9); SEG#(MANUAL) 10.56 x10^3/uL (1.8-6.8); SEGS% (MANUAL) 80 % (42-75)
[2019-11-28] MEDS: ATORVASTATIN 10 MG TABLET PO SCH (09:00)
[2019-11-28] MEDS: FLUOXETINE HCL 20 MG CAPSULE PO SCH (09:00)
[2019-11-28] MEDS: CHOLECALCIFEROL 5,000u TAB PO SCH (09:00)
[2019-11-28] MEDS: CARVEDILOL 6.25 MG TABLET PO SCH ×2 (09:00→22:00)
[2019-11-28 11:22] VITALS: BP 99/61
[2019-11-28] MEDS ORDERED: MIDAZOLAM 1 MG/ML, 2ML ONE (12:29)
[2019-11-28] MEDS ORDERED: CHLORHEXIDINE 15 ML UDC ONE (12:37)
[2019-11-28] MEDS ORDERED: PROPOFOL 10 MG/ML, 20ML ONE (12:55)
[2019-11-28] MEDS ORDERED: ONDANSETRON 2MG/ML, 2ML ONE (12:55)
[2019-11-28] MEDS ORDERED: CEFAZOLIN 1,000 MG ONE (12:55)
[2019-11-28] MEDS ORDERED: SUGAMMADEX 200 MG/2 ML IVPush ONE (12:55)
[2019-11-28] MEDS ORDERED: SUCCINYLCHOLINE 20 MG/ML, 10ML ONE (12:55)
[2019-11-28] MEDS ORDERED: ROCURONIUM 10 MG/ML,10ML ONE (12:55)
[2019-11-28] MEDS ORDERED: CHLORHEXIDINE 15 ML UDC MM ONE (13:00)
[2019-11-28] MEDS ORDERED: LABETALOL 5MG/ML, 20ML IV PRN (14:00)
[2019-11-28] MEDS ORDERED: KETOROLAC 30 MG/1 ML IV PRN (14:00)
[2019-11-28] MEDS ORDERED: DIAZEPAM 5 MG/ML, 2ML IV PRN ×2 (14:00)
[2019-11-28] MEDS ORDERED: HYDROmorphone 1 MG/ML, 1ML INJ IV PRN (14:00)
[2019-11-28] MEDS ORDERED: PROMETHAZINE 25 MG/ML, 1ML IV PRN (14:00)
[2019-11-28] MEDS ORDERED: hydrALAzine 20 MG/ML, 1ML IV PRN (14:00)
[2019-11-28] MEDS ORDERED: ONDANSETRON 2MG/ML, 2ML IVPush PRN (14:00)
[2019-11-28] MEDS ORDERED: MEPERIDINE/PF 25MG/0.5ML IVPush PRN (14:00)
[2019-11-28] MEDS ORDERED: FENTANYL PF 100 MCG/2ML IV PRN (14:00)
[2019-11-28] MEDS ORDERED: OXYcodone 5 MG/5 ML ORAL.SOL UDC PO PRN (14:00)
[2019-11-28] MEDS ORDERED: ALBUTEROL SULFATE 2.5 MG/3 ML NPPB PRN (14:00)
[2019-11-28] MEDS: CEFTRIAXONE PMX 1GM/50ML 50 ML IV SCH (14:56)
[2019-11-28 19:33] VITALS: BP 127/70
[2019-11-28] MEDS: ACETAMINOPHEN 325 MG TABLET PO PRN (19:43)
[2019-11-28] MEDS: AMLODIPINE 10 MG TAB PO SCH (22:00)
[2019-11-28 22:01] VITALS: BP 110/67
[2019-11-29 00:45] VITALS: BP 101/70
[2019-11-29] MEDS: CEFTRIAXONE PMX 1GM/50ML 50 ML IV SCH (02:17)
[2019-11-29] MEDS: ACETAMINOPHEN 325 MG TABLET PO PRN ×4 (02:17→19:48)
[2019-11-29 04:37] LABS: ANION GAP 7 mmol/L (5-15); CALCIUM 8.2 mg/dL (8.5-10.1); CHLORIDE 106 mmol/L (98-107); CREATININE 1.42 mg/dL (0.55-1.02)
[2019-11-29 04:46] LABS: MEAN CORPUSCULAR HEMOGLOBIN 30.4 pg (27.0-34.8); MEAN CORPUSCULAR VOLUME 92.1 fL (80-100); PLATELET COUNT 173 x10^3/uL (130-400); RED BLOOD COUNT 4.09 x10^6/uL (3.82-5.3); RED CELL DISTRIBUTION WIDTH 14.5 % (9.6-15.2)
[2019-11-29 05:18] LABS: MD YES
[2019-11-29 05:22] LABS: <PLATELET ESTIMATE> ADEQUATE; <PLT MORPHOLOGY> NORMAL PLT MORPH; <RBC MORPHOLOGY> NORMAL; BAND#(MANUAL) 0.17 x10^3/uL; BANDS%(MANUAL) 2 % (0-7); BASOS#(MANUAL) 0.17 x10^3/uL (0-0.1); BASOS% (MANUAL) 2 % (0-1); EOS#(MANUAL) 0.08 x10^3/uL (0.0-0.4); EOS% (MANUAL) 1 % (1-7); LYMPH#(MANUAL) 0.92 x10^3/uL (1-3.4); LYMPHS% (MANUAL) 11 % (22-44); MONOS% (MANUAL) 6 % (2-9); SEG#(MANUAL) 6.55 x10^3/uL (1.8-6.8); SEGS% (MANUAL) 78 % (42-75)
[2019-11-29 07:00] VITALS: BP 107/68
[2019-11-29] MEDS: FLUOXETINE HCL 20 MG CAPSULE PO SCH (07:54)
[2019-11-29] MEDS: ATORVASTATIN 10 MG TABLET PO SCH (07:54)
[2019-11-29] MEDS: CARVEDILOL 6.25 MG TABLET PO SCH ×2 (07:54→19:47)
[2019-11-29] MEDS: CHOLECALCIFEROL 5,000u TAB PO SCH (07:54)
[2019-11-29 13:10] VITALS: BP 104/65
[2019-11-29] MEDS: HEPARIN 5,000 UNITS/ML, 1ML SQ SCH ×2 (13:24→19:47)
[2019-11-29] MEDS: SODIUM CHLORIDE 0.9% 1,000 ML IV SCH (13:50)
[2019-11-29] MEDS: PIPERACILLIN/TAZO/PMX 3.375GM 50 ML IV SCH ×2 (13:53→19:46)
[2019-11-29 19:13] VITALS: BP 123/72
[2019-11-29] MEDS: AMLODIPINE 10 MG TAB PO SCH (19:47)
[2019-11-30] MEDS: SODIUM CHLORIDE 0.9% 1,000 ML IV SCH ×2 (00:58→07:51)
[2019-11-30 01:00] VITALS: BP 117/77
[2019-11-30] MEDS: ACETAMINOPHEN 325 MG TABLET PO PRN ×4 (01:02→21:05)
[2019-11-30] MEDS: PIPERACILLIN/TAZO/PMX 3.375GM 50 ML IV SCH ×4 (03:25→21:05)
[2019-11-30] MEDS ORDERED: SODIUM CHLORIDE 0.9% 1,000 ML IV SCH (03:34)
[2019-11-30 05:14] LABS: ALBUMIN 2.3 g/dL (3.4-5.0); ANION GAP 7 mmol/L (5-15); CHLORIDE 110 mmol/L (98-107)
[2019-11-30 05:19] LABS: ALANINE AMINOTRANSFERASE 17 U/L (12-78); ALKALINE PHOSPHATASE 86 U/L (45-117); BILIRUBIN,TOTAL 0.7 mg/dL (0.2-1.0); CREATININE 1.07 mg/dL (0.55-1.02); TOTAL PROTEIN 6.1 g/dL (6.4-8.2)
[2019-11-30] MEDS: HEPARIN 5,000 UNITS/ML, 1ML SQ SCH ×3 (05:22→21:06)
[2019-11-30 05:32] LABS: BASOPHILS # (AUTO) 0.03 x10^3/uL (0-0.1); BASOPHILS % (AUTO) 1 % (0-1); EOSINOPHILS # (AUTO) 0.06 x10^3/uL (0-0.4); EOSINOPHILS % (AUTO) 2 % (1-7); LYMPHOCYTES # (AUTO) 0.46 x10^3/uL (1-3.4); LYMPHOCYTES % (AUTO) 13 % (22-44); MD NO; MEAN CORPUSCULAR HEMOGLOBIN 30.1 pg (27.0-34.8); MEAN CORPUSCULAR HGB CONC 32.7 g/dL (32.4-35.8); MONOCYTES # (AUTO) 0.41 x10^3/uL (0.2-0.8); MONOCYTES % (AUTO) 12 % (2-9); NEUTROPHILS # (AUTO) 2.49 x10^3/uL (1.8-6.8); NEUTROPHILS % (AUTO) 72 % (42-75); PLATELET COUNT 130 x10^3/uL (130-400); RED BLOOD COUNT 3.85 x10^6/uL (3.82-5.3)
[2019-11-30 07:05] VITALS: BP 125/68
[2019-11-30] MEDS: FLUOXETINE HCL 20 MG CAPSULE PO SCH (07:49)
[2019-11-30] MEDS: CHOLECALCIFEROL 5,000u TAB PO SCH (07:49)
[2019-11-30] MEDS: CARVEDILOL 6.25 MG TABLET PO SCH ×2 (07:49→21:06)
[2019-11-30] MEDS: ATORVASTATIN 10 MG TABLET PO SCH (07:49)
[2019-11-30] MEDS: PHENAZOPYRIDINE 100 MG TABLET PO SCH ×3 (12:58→21:05)
[2019-11-30 13:49] VITALS: BP 111/59
[2019-11-30] MEDS: POTASSIUM CHLORIDE 20 MEQ TAB.ER.PRT PO SCH (17:21)
[2019-11-30 19:09] VITALS: BP 137/90
[2019-11-30] MEDS: AMLODIPINE 10 MG TAB PO SCH (21:06)
[2019-11-30] MEDS: ONDANSETRON 2MG/ML, 2ML IVPush PRN (21:36)
[2019-12-01] MEDS: ACETAMINOPHEN 325 MG TABLET PO PRN ×2 (00:54→07:54)
[2019-12-01 01:00] VITALS: BP 116/67
[2019-12-01] MEDS: PIPERACILLIN/TAZO/PMX 3.375GM 50 ML IV SCH (03:26)
[2019-12-01] MEDS: HEPARIN 5,000 UNITS/ML, 1ML SQ SCH ×2 (04:38→12:55)
[2019-12-01 05:46] LABS: BASOPHILS # (AUTO) 0.03 x10^3/uL (0-0.1); BASOPHILS % (AUTO) 1 % (0-1); EOSINOPHILS # (AUTO) 0.14 x10^3/uL (0-0.4); EOSINOPHILS % (AUTO) 3 % (1-7); LYMPHOCYTES # (AUTO) 0.88 x10^3/uL (1-3.4); LYMPHOCYTES % (AUTO) 19 % (22-44); MD NO; MEAN CORPUSCULAR HEMOGLOBIN 30.5 pg (27.0-34.8); MEAN CORPUSCULAR HGB CONC 33.4 g/dL (32.4-35.8); MEAN CORPUSCULAR VOLUME 91.3 fL (80-100); MEAN PLATELET VOLUME 9.2 fL (7.4-10.4); MONOCYTES # (AUTO) 0.55 x10^3/uL (0.2-0.8); MONOCYTES % (AUTO) 12 % (2-9); NEUTROPHILS # (AUTO) 3.02 x10^3/uL (1.8-6.8); NEUTROPHILS % (AUTO) 65 % (42-75); PLATELET COUNT 152 x10^3/uL (130-400); RED BLOOD COUNT 4.13 x10^6/uL (3.82-5.3); RED CELL DISTRIBUTION WIDTH 14.2 % (9.6-15.2)
[2019-12-01 05:53] LABS: CHLORIDE 109 mmol/L (98-107)
[2019-12-01 06:00] LABS: ALANINE AMINOTRANSFERASE 28 U/L (12-78); ALBUMIN 2.6 g/dL (3.4-5.0); ALKALINE PHOSPHATASE 120 U/L (45-117); ANION GAP 6 mmol/L (5-15); BILIRUBIN,TOTAL 0.6 mg/dL (0.2-1.0); CALCIUM 8.3 mg/dL (8.5-10.1); CREATININE 0.91 mg/dL (0.55-1.02); TOTAL PROTEIN 6.7 g/dL (6.4-8.2)
[2019-12-01 06:49] VITALS: BP 115/65
[2019-12-01] MEDS: POTASSIUM CHLORIDE 20 MEQ TAB.ER.PRT PO SCH (07:54)
[2019-12-01] MEDS: CHOLECALCIFEROL 5,000u TAB PO SCH (07:54)
[2019-12-01] MEDS: ATORVASTATIN 10 MG TABLET PO SCH (07:55)
[2019-12-01] MEDS: CARVEDILOL 6.25 MG TABLET PO SCH (07:55)
[2019-12-01] MEDS: PHENAZOPYRIDINE 100 MG TABLET PO SCH (07:55)
[2019-12-01] MEDS: FLUOXETINE HCL 20 MG CAPSULE PO SCH (07:56)
[2019-12-01] MEDS ORDERED: CEFDINIR 300 MG CAPSULE PO SCH (09:00)
[2019-12-01] MEDS ORDERED: PHEN-582 PO (10:32)
[2019-12-01] MEDS ORDERED: CEFD300C37 PO (10:32)
[2019-12-01] MEDS ORDERED: POTA20TA6 PO (10:32)
[2019-12-01 12:00] VITALS: BP 127/81
== END 2019-12-01 14:10 | disposition home or self-care (01) | DRG 660 ==
LOC: ED 11-28 00:42 → EDIP 11-28 01:49 → 3N 11-28 02:33
PROVIDERS: ADMIT Family Medicine; ATTEND Internal Medicine
PROC: 0T9B70Z Drainage of Bladder with Drainage Device, Via Natural or Artificial Opening (ICD-10-PCS; 2019-11-28)
PROC: 0T768DZ Dilation of Right Ureter with Intraluminal Device, Via Natural or Artificial Opening Endoscopic (ICD-10-PCS; principal; 2019-11-28 12:00)
DX: N13.6 Pyonephrosis (principal); Z68.44 Body mass index [BMI] 60.0-69.9, adult; B96.1 Klebsiella pneumoniae [K. pneumoniae] as the cause of diseases classified elsewhere; E11.9 Type 2 diabetes mellitus without complications; E66.01 Morbid (severe) obesity due to excess calories; E78.5 Hyperlipidemia, unspecified; I10 Essential (primary) hypertension; K21.9 Gastro-esophageal reflux disease without esophagitis; K57.30 Diverticulosis of large intestine without perforation or abscess without bleeding; N17.0 Acute kidney failure with tubular necrosis; Z82.49 Family history of ischemic heart disease and other diseases of the circulatory system; Z87.442 Personal history of urinary calculi; Z90.49 Acquired absence of other specified parts of digestive tract; Z88.1 Allergy status to other antibiotic agents; Z91.040 Latex allergy status; Z82.5 Family history of asthma and other chronic lower respiratory diseases; Z84.89 Family history of other specified conditions; Z82.61 Family history of arthritis; M25.561 Pain in right knee; Z79.84 Long term (current) use of oral hypoglycemic drugs; Z79.899 Other long term (current) drug therapy
CPT/HCPCS: 36415; 74018; 74176; 76000; 80048; 80053; 81001; 83690; 85025; 87040; 87077; 87086; 87186; 96361; 96372; 96374; 99285; G0378; J0690; J0696; J1644; J1885; J2250; J2405; J2543; J2550; J2704; C1769; C2617; J0330; J2270; J7030